=== PATIENT | male | born 1980 | race Caucasian/White ===

== ENCOUNTER 2024-11-12 07:27 | Emergency (ER) | payer MEDICAID, SELFPAY ==
[2024-11-12 08:37] VITALS: BP 117/73; PULSE 104; RESP 18; TEMP 36.8; O2SAT 95; BMI 30.4
--- NOTE | 2024-11-12 09:46 | XR_ITS ---
Examination: PA lateral chest 2 views Technique: Upright PA lateral chest 2 views Exam date and time: November 12, 2024 0958 hrs. Indications: Congestion beginning 2 weeks ago. Findings: Normal heart size Early bilateral perihilar basilar infiltrates with prominent hilar regions The osseous structures are intact Impression: Early bilateral perihilar bibasilar pneumonia. Follow-up chest imaging is needed to exclude underlying hilar lymphadenopathy
--- NOTE | 2024-11-12 09:48 | PD.EDURI ---
Upper Respiratory Inf. RME/HPI General Chief Complaint: Flu Like Symptoms Stated Complaint: COUGH, CONGESTION, SOB X A WEEK OR TWO Time Seen by Provider: 11/12/24 09:46 Arrival date/time: 11/12/24 07:27 RME / HPI RME / HPI Narrative: 44-year-old patient presents emergency department with complaint shortness of breath and cough for the past 2 weeks. Patient also states that he is lost his voice due to excessive coughing. He attest to tobacco use. He denies sick contacts or recent travel. He denies any alleviating or aggravating factors. Related Data Home Medications ?Medication ?Instructions ?Recorded ?Confirmed phenytoin sodium extended 100 mg 100 mg PO TID 04/14/19 04/11/24 capsule (Dilantin Extended) risperidone 2 mg tablet (Risperdal) 2 mg PO QDAY 04/14/19 04/11/24 Previous Rx's ?Medication ?Instructions ?Recorded cyclobenzaprine 10 mg tablet 10 mg PO TID PRN muscle spasm #10 09/14/24 tabs ibuprofen 600 mg tablet 600 mg PO Q8H PRN pain #20 tabs 09/14/24 azithromycin 250 mg tablet See Rx Instructions PO .COMPLEX #6 11/12/24 tabs Allergies Allergy/AdvReac Type Severity Reaction Status Date / Time codeine Allergy Severe VOMITING Verified 11/12/24 07:29 Review of Systems Review of Systems Systems Reviewed: All systems reviewed, normal except as documented Constitutional Constitutional: Reports system reviewed and no additional complaints, except as documented Cardiovascular Cardiovascular: Reports system reviewed and no additional complaints, except as documented Respiratory Respiratory: Reports system reviewed and no additional complaints, except as documented and Reports cough Gastrointestinal Gastrointestinal: Reports system reviewed and no additional complaints, except as documented Musculoskeletal Musculoskeletal: Reports system reviewed and no additional complaints, except as documented Psychiatric Psychiatric: Reports system reviewed and no additional complaints, except as documented ED Exam General General appearance: Present alert and in no apparent distress Head Head exam: Present atraumatic and normocephalic ENT ENT exam: Present normal exam and normal oropharynx Neck Neck exam: Present normal inspection and full ROM Chest Chest inspection: Present normal inspection and symmetric chest wall rise Respiratory Respiratory exam: Absent respiratory distress Cardiovascular Cardiovascular exam: Present regular rate and normal rhythm Extremities Exam Extremities exam: Present normal inspection and full ROM Neurological Exam Neurological exam: Present alert and oriented X3 Psychiatric Psychiatric exam: Present normal affect and normal mood Course Quality Measures none Orders Category Date Time Status XR chest 2V Stat Exams 11/12/24 09:46 Completed cefTRIAXone [Rocephin] 1,000 mg Med 11/12/24 12:14 Discontinued Lidocaine 1% 20 ml [Xylocaine 1% 20 ML] 2.1 ml IM X1 Vital Signs Vital signs: Vital Signs Temperature 98.2 F 11/12/24 08:37 Pulse Rate 104 H 11/12/24 08:37 Respiratory Rate 18 11/12/24 08:37 Blood Pressure 117/73 11/12/24 08:37 Pulse Oximetry (%) 95 11/12/24 08:37 Oxygen Delivery Method Room Air 11/12/24 08:37 Upper Respiratory Infection MDM Narrative MDM Narrative:: 44-year-old male patient presents emergency department with complaint of cough chest x-ray indicates pneumonia patient will be treated with IM antibiotics and DC'd home with oral antibiotics patient remained afebrile nontoxic-appearing throughout ED stay. Patient data External records reviewed:: None Clinical information provided by:: patient Social determinants that could affect healthcare access:: none Patient has the following chronic illnesses:: na How is presenting disease/condition affected by chronic disease/condition?: no chronic disease Evaluation data The following diagnostics were reviewed and interpreted by me:: radiology exam(s) Lab and/or radiology exams considered but not ordered:: CXR ordered Interpretation Summary: PNA Medications / Prescriptions Medications or Prescriptions considered but not ordered:: meds ordered Medication administrations:: Medication Administration History Discontinued Medications Ceftriaxone Sodium 1,000 mg/ (Lidocaine HCl 2.1 ml) 0 mg IM X1 ONE Stop: 11/12/24 12:15 per above Consultations Consultation(s) initiated? (list below): No Diagnosis Upper Respiratory Differential Diagnosis: upper respiratory infection, sinusitis, bronchitis and pharyngitis Most likely diagnosis given after review of the tests above:: PNA Admission Indicated Admission indicated?: not indicated Admission Request Was there a request for admission?: No Disposition Plan Disposition Plan: Discharge Discharge Attestation Discharge Attestation: The patient and all family members were given an opportunity to ask questions and understood the discharge instructions. Discharge instructions specifically effects, indications for sooner follow up or return to the emergency department, and the expected course of current diagnosis. Patient condition: Stable Discharge Plan Plan Patient Disposition: Elopement Prescriptions/Referrals Prescriptions/Med Rec: New azithromycin 250 mg tablet See Rx Instructions .ROUTE .COMPLEX Qty: 6 0RF Rx Instructions: For 250 mg dose pack: take 500 mg today (day 1), then 250 mg for 4 days (days 2-5) No Action phenytoin sodium extended [Dilantin Extended] 100 mg Capsule 100 mg PO TID risperidone [Risperdal] 2 mg Tablet 2 mg PO QDAY cyclobenzaprine 10 mg tablet 10 mg PO TID PRN (Reason: muscle spasm) Qty: 10 0RF ibuprofen 600 mg tablet 600 mg PO Q8H PRN (Reason: pain) Qty: 20 0RF Referrals: Silvia Finch, [employer] [Primary Care Provider] - In 1 week Problem List Clinical Impression: Community acquired pneumonia Patient/Caregiver Discharge Instructions Education Materials: ED Pneumonia (Adult) Print Language: Yakut Stand Alone Forms: Claudette Award Info., Patient Portal Info Letter
--- NOTE | 2024-11-12 12:21 | PC.NURSE ---
called pt back, no answer at this time
--- NOTE | 2024-11-12 13:24 | PC.NURSE ---
called back and no answer in the lobby
== END 2024-11-12 13:20 | disposition left against medical advice (07) ==
PROVIDERS: Emergency Provider Emergency Medicine; PCP Nurse Practitioner Family
DX: J18.9 Pneumonia, unspecified organism (principal); Z53.29 Procedure and treatment not carried out because of patient's decision for other reasons
CPT/HCPCS: 71046; 99281

== ENCOUNTER 2025-03-09 06:21 | Emergency (ER) | payer MEDICAID, SELFPAY ==
[2025-03-09 06:21] VITALS: BMI 30.4
[2025-03-09 06:26] VITALS: BP 134/90; PULSE 92; RESP 19; TEMP 36.4; O2SAT 95
--- NOTE | 2025-03-09 06:37 | PD.EDRME ---
Rapid Medical Screening Exam [facility] Arrival date/time: 03/09/25 06:21 44-year-old male with no known medical history presents to the emergency room with a chief complaint of abdominal distention, generalized abdominal pain, and nausea x 3 days. Patient states she is a daily alcoholic drinker. I have greeted and performed a focused initial assessment of this patient. A comprehensive ED assessment and evaluation of the patient, analysis of all test results, and completion of the medical decision making process will be conducted by additional ED providers. Chief Complaint: Abdominal Pain Time Seen by Provider: 03/09/25 06:25 Vital signs: Vital Signs Temperature 97.6 F 03/09/25 06:26 Pulse Rate 92 03/09/25 06:26 Respiratory Rate 19 03/09/25 06:26 Blood Pressure 134/90 H 03/09/25 06:26 Pulse Oximetry (%) 95 03/09/25 06:26 Oxygen Delivery Method Room Air 03/09/25 06:26 Vital signs reviewed by provider: Yes
--- NOTE | 2025-03-09 06:39 | XR_ITS ---
Examination: CT abdomen and pelvis without contrast. Coronal 3-D reconstructions. Sagittal 2-D reconstructions. Date and time of exam: March 09, 2025 0823 hours INDICATIONS: Onset mid abdominal pain lower abdominal pain today, diagnosis cirrhosis COMPARISON: February 16, 2024, CTDI: vol (mGy): 8.75 DLP: (mGycm): 568 Technique: Axial images of the abdomen have been obtained, 3 mm slice thickness Intravenous contrast material has not been administered. Low dose protocols were performed. One or more of the following dose reduction techniques were used; automated exposure control, adjustment of the mA and/or KV according to patient size, use of iterative reconstruction technique. Findings: Liver irregular in contour no focal liver lesions No gallstones Spleen not enlarged No pancreatic or adrenal mass No renal or ureteral calculi, no hydronephrosis Aorta normal size Normal appendix No bowel obstruction No diverticulitis Urinary bladder intact No prostatomegaly Advanced degenerative disc disease L5-S1 IMPRESSION: Cirrhosis versus primary hepatocellular disease No renal or ureteral calculi, no hydronephrosis Normal appendix No bowel obstruction diverticulitis or free air
--- NOTE | 2025-03-09 07:20 | PD.EDABDPN ---
ED Abdominal Pain RME/HPI General Chief Complaint: Abdominal Pain Stated complaint: ABD PAIN, DISTENDED, NAUSEA Time seen by provider: 03/09/25 06:25 Arrival date/time: 03/09/25 06:21 Limitations: no limitations RME / HPI RME / HPI narrative: 03/09/25 06:21 44-year-old male with no known medical history presents to the emergency room with a chief complaint of abdominal distention, generalized abdominal pain, and nausea x 3 days. Patient states she is a daily alcoholic drinker. I have greeted and performed a focused initial assessment of this patient. A comprehensive ED assessment and evaluation of the patient, analysis of all test results, and completion of the medical decision making process will be conducted by additional ED providers. DR. SAMUELS MAIN ED EVALUATION: 44 year old male with no stated chronic medical history presents to the ED for evaluation of abdominal pain beginning 3 days ago. Patient describes his abdomen to feel it's inflated without known modifying factors. Accompanied by nausea. Denies any history of similar symptoms. Denies fevers, chills, chest pain, cough, diarrhea, constipation, or urinary symptoms. Patient reports he drinks alcohol daily. Related Data Home Medications ?Medication ?Instructions ?Recorded ?Confirmed phenytoin sodium extended 100 mg 100 mg PO TID 04/14/19 04/11/24 capsule (Dilantin Extended) risperidone 2 mg tablet (Risperdal) 2 mg PO QDAY 04/14/19 04/11/24 Previous Rx's ?Medication ?Instructions ?Recorded cyclobenzaprine 10 mg tablet 10 mg PO TID PRN muscle spasm #10 09/14/24 tabs ibuprofen 600 mg tablet 600 mg PO Q8H PRN pain #20 tabs 09/14/24 azithromycin 250 mg tablet See Rx Instructions PO .COMPLEX #6 11/12/24 tabs Allergies Allergy/AdvReac Type Severity Reaction Status Date / Time codeine Allergy Severe VOMITING Verified 11/12/24 07:29 Review of Systems Review of Systems Systems Reviewed: All systems reviewed, normal except as documented Past Medical History Past Medical History NEUROLOGIC: Positive Seizures CARDIAC: Negative Congestive Heart Failure RESPIRATORY: Negative Chronic Obstructive Pulmonary Disease (COPD) GASTROINTESTINAL: Positive Cirrhosis GENITOURINARY: Negative Renal Disease ENDOCRINE: Negative Diabetes Mellitus Type 1 or Diabetes Mellitus Type 2 PSYCHO/SOCIAL: Positive Bipolar Disorder and Depression Social History SMOKING STATUS: Current every day smoker SUBSTANCE USE: does not use ED Exam General Limitations: Present no limitations General appearance: Present alert and in no apparent distress Head Head exam: Present atraumatic, normocephalic and normal inspection Eye Eye exam: Present normal appearance, PERRL and EOMI ENT ENT exam: Present normal exam, normal oropharynx and mucous membranes moist Neck Neck exam: Present normal inspection, full ROM and trachea midline Chest Chest inspection: Present normal inspection and symmetric chest wall rise Respiratory Respiratory exam: Present normal lung sounds bilaterally Cardiovascular Cardiovascular exam: Present regular rate, normal rhythm and normal heart sounds Abdominal Exam Abdominal exam: Present soft, distention, normal bowel sounds and other (small umbilical hernia noted ) Extremities Exam Extremities exam: Present normal inspection and full ROM Back Exam Back exam: Present normal inspection and full ROM Neurological Exam Neurological exam: Present alert, oriented X3 and CN II-XII intact Psychiatric Psychiatric exam: Present normal affect and normal mood Skin Skin exam: Present warm, dry, intact and normal color Course Quality Measures none Orders Category Date Time Status Discharge Routine Discharge 03/09/25 09:[address] abdomen pelvis wo con Stat Exams 03/09/25 06:39 Completed Amylase Stat Lab 03/09/25 06:58 Completed CBC Stat Lab 03/09/25 06:58 Completed CMP [Comprehensive Metabolic Panel] Stat Lab 03/09/25 06:58 Completed Lipase Stat Lab 03/09/25 06:58 Completed UA [Urinalysis] Stat Lab 03/09/25 07:31 Completed Urine Culture Stat Lab 03/09/25 07:33 Received Reevaluation(s) Reevaluation #1: Patient remains clinically stable throughout the emergency department visit. We reviewed all the results, analysis, and treatment plans. Patient is amenable to discharge. Strict return precautions were outlined. Patient was discharged in stable condition. Time: 09:10 Vital Signs Vital signs: Vital Signs Temperature 97.6 F 03/09/25 06:26 Pulse Rate 92 03/09/25 06:26 Respiratory Rate 19 03/09/25 06:26 Blood Pressure 134/90 H 03/09/25 06:26 Pulse Oximetry (%) 95 03/09/25 06:26 Oxygen Delivery Method Room Air 03/09/25 06:26 Pulse ox is 95% on room air which is adequate. Abdominal Pain MDM MDM Narrative MDM Narrative:: I, Cecile Joseph, am scribing for and in the presence of Dr. Samuels. I have reviewed the patient?s laboratory results, which demonstrate a persistent leukocytosis, dating back to 2021. I discussed the importance of further evaluation with the patient. I advised him to follow up with his primary care provider to get a referral to hematology/oncology for additional workup and management. Patient data External records reviewed:: [facility] previous records (I reviewed ED visit on 11/12/2024, diagnosed with pneumonia ) Clinical information provided by:: patient Social determinants that could affect healthcare access:: alcohol use Patient has the following chronic illnesses:: No chronic medical history reported How is presenting disease/condition affected by chronic disease/condition?: no chronic disease Evaluation data The following diagnostics were reviewed and interpreted by me:: lab results and radiology exam(s) Lab and/or radiology exams considered but not ordered:: None Interpretation Summary: Ordering Physician: Osorio Coffman Date of Service: 03/09/25 Procedure(s): CT abdomen pelvis wo con Accession Number(s): [id number] cc: Osorio Coffman; Cheng Garcia MD; Silvia Finch NP~ Examination: CT abdomen and pelvis without contrast. Coronal 3-D reconstructions. Sagittal 2-D reconstructions. Date and time of exam: March 09, 2025 0823 hours INDICATIONS: Onset mid abdominal pain lower abdominal pain today, diagnosis cirrhosis COMPARISON: February 16, 2024, CTDI: vol (mGy): 8.75 DLP: (mGycm): 568 Technique: Axial images of the abdomen have been obtained, 3 mm slice thickness Intravenous contrast material has not been administered. Low dose protocols were performed. One or more of the following dose reduction techniques were used; automated exposure control, adjustment of the mA and/or KV according to patient size, use of iterative reconstruction technique. Findings: Liver irregular in contour no focal liver lesions No gallstones Spleen not enlarged No pancreatic or adrenal mass No renal or ureteral calculi, no hydronephrosis Aorta normal size Normal appendix No bowel obstruction No diverticulitis Urinary bladder intact No prostatomegaly Advanced degenerative disc disease L5-S1 IMPRESSION: Cirrhosis versus primary hepatocellular disease No renal or ureteral calculi, no hydronephrosis Normal appendix No bowel obstruction diverticulitis or free air Dictated By: Cheng Garcia MD Signed By: <Electronically signed by Cheng Garcia MD in OV> 03/09/25 0854 Medications / Prescriptions Medications or Prescriptions considered but not ordered:: None Medication administrations:: None Consultations Consultation(s) initiated? (list below): No Diagnosis Differential diagnosis abdominal pain: abdominal pain, constipation, diverticulitis and other (liver disease) Most likely diagnosis given after review of the tests above:: Liver disease Leukocytosis Admission Indicated Admission indicated?: not indicated Explain why admission is indicated or not indicated:: Patient does not meet admission criteria Admission Request Was there a request for admission?: No Disposition Plan Disposition Plan: Discharge Discharge Attestation Discharge Attestation: The patient and all family members were given an opportunity to ask questions and understood the discharge instructions. Discharge instructions specifically effects, indications for sooner follow up or return to the emergency department, and the expected course of current diagnosis. Patient condition: Stable Discharge Plan Plan Patient Disposition: HOME (Self Care) Prescriptions/Referrals Prescriptions/Med Rec: No Action phenytoin sodium extended [Dilantin Extended] 100 mg Capsule 100 mg PO TID risperidone [Risperdal] 2 mg Tablet 2 mg PO QDAY azithromycin 250 mg tablet See Rx Instructions .ROUTE .COMPLEX Qty: 6 0RF Rx Instructions: For 250 mg dose pack: take 500 mg today (day 1), then 250 mg for 4 days (days 2-5) cyclobenzaprine 10 mg tablet 10 mg PO TID PRN (Reason: muscle spasm) Qty: 10 0RF ibuprofen 600 mg tablet 600 mg PO Q8H PRN (Reason: pain) Qty: 20 0RF Referrals: Silvia Finch NP [Primary Care Provider] - In 1 week Problem List Clinical Impression: Liver disease, Leukocytosis Patient/Caregiver Discharge Instructions Education Materials: Tests for Liver Disease Additional Instructions: Follow up with your doctor for referral to hematology/oncology and head banquet waiter/waitress for further evaluation/treatment. Return for any new or worsening symptoms. Print Language: Kittitian Stand Alone Forms: Claudette Award Info., Patient Portal Info Letter Discharge Order Discharge Orders: Discharge (Routine); Ordered 03/09/25 Ordered By: Alex Samuels
[2025-03-09 07:22] LABS: Basophils # (Auto) 0.1 Thou/mm3 (0.0-0.2); Basophils % (Auto) 0 % (0-2.5); Eosinophils # (Auto) 0.3 Thou/mm3 (0.0-0.5); Eosinophils % (Auto) 1 % (0-10); Hematocrit 44.6 % (41.0-53.0); Hemoglobin 15.3 g/dL (13.5-16.0); Immature Granulocytes % (Auto) 0 % (0-0); Immature Granulocytes Auto 0.07 Thou/mm3 (0.00-0.00); Lymphocytes # (Auto) 16.5 Thou/mm3 (1.0-4.8); Lymphocytes % (Auto) 70 % (10-50); Mean Corpuscular HGB Conc 34.3 g/dl (31.0-37.0); Mean Corpuscular Hemoglobin 32.3 pg (25.0-35.0); Mean Corpuscular Volume 94 fL (80-100); Monocytes # (Auto) 0.4 Thou/mm3 (0.0-0.8); Monocytes % (Auto) 2 % (0-12); Neutrophils # (Auto) 6.4 Thou/mm3 (1.8-7.7); Neutrophils % (Auto) 27 % (37-80); Nucleated Red Blood Cell % 0 /100 WBC (0); Platelet Count 258 Thou/mm3 (140-440); RDW Standard Deviation 47.4 fL (35.1-43.9); Red Blood Count 4.74 Miln/mm3 (4.50-5.90); White Blood Count 23.7 Thou/mm3 (3.8-10.6)
[2025-03-09 07:41] LABS: Alanine Aminotransferase 43 U/L (10-49); Albumin, Serum 4.8 gm/dL (3.5-5.0); Albumin/Globulin Ratio 2.2 (1.2-2.2); Alkaline Phosphatase 98 U/L (46-116); Amylase 48 U/L (30-118); Anion Gap 7 (7-16); Aspartate Amino Transferase 32 U/L (0-34); BUN/Creatinine Ratio 7 Ratio (12-20); Bilirubin,Total 0.7 mg/dL (0.3-1.2); Blood Urea Nitrogen 9 mg/dL (9-23); Calcium 9.3 mg/dL (8.3-10.6); Calcium (Corrected) 9.3 mg/dL (8.5-10.1); Carbon Dioxide 24.4 mMol/L (20.0-31.0); Chloride 106 mMol/L (98-107); Creatinine (Component) 1.3 mg/dL (0.6-1.3); Estimated Creatinine Clearance 77.7 mL/min (>60); Globulin 2.2 gm/dL (2.3-3.5); Glucose 99 mg/dL (74-106); Lipase 46 U/L (12-53); Osmolality,Calculated 272 (275-295); Potassium 3.6 mMol/L (3.4-5.1); Sodium 137 mMol/L (136-145); eGFR > 60 See Note
[2025-03-09 07:42] LABS: Collection Type, Urine Clean Catch; Squamous Epithelial Cell,Urine 0 /hpf (0-5)
[2025-03-09 07:56] LABS: Bacteria,Urine Rare; Bilirubin,Urine Negative (Negative); Blood,Urine Negative (Negative); Clarity,Urine Clear (Clear/Hazy); Color,Urine Yellow (Lt Yel-Yel); Glucose, Urine Negative (Negative); Hyaline Casts,Urine < 1 /hpf (0-1); Ketones,Urine Negative (Negative); Leukocyte Esterase,Urine Negative (Negative); Nitrite,Urine Negative (Negative); Protein,Urine Trace (Neg - Trace); RBC,Urine 2 /hpf (0-3); Specific Gravity,Urine 1.019 (1.001-1.035); Urobilinogen,Urine Negative mg/dL (0.0-1.0); WBC,Urine < 1 /hpf (0-5)
[2025-03-09 08:09] VITALS: BP 132/86; PULSE 89; RESP 18; TEMP 36.6; O2SAT 92
[2025-03-09 08:20] LABS: Sperm,Urine Present
[2025-03-09 10:08] VITALS: BP 123/80; PULSE 91; RESP 18; TEMP 36.6; O2SAT 98
== END 2025-03-09 10:09 | disposition home or self-care (01) ==
PROVIDERS: Nurse Practitioner Family; Emergency Provider Emergency Medicine; PCP Nurse Practitioner Family
DX: K76.9 Liver disease, unspecified (principal); D72.829 Elevated white blood cell count, unspecified
CPT/HCPCS: 36415; 74176; 80053; 81001; 82150; 83690; 85025; 87086; 99284

== ENCOUNTER 2025-03-12 17:04 | Emergency (ER) | payer MEDICAID, SELFPAY ==
[2025-03-12 17:09] VITALS: BP 145/91; PULSE 86; RESP 18; TEMP 37.2; O2SAT 97; BMI 32.5
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
--- NOTE | 2025-03-12 17:22 | XR_ITS ---
EXAMINATION: Ankle, right 3 views . Technique: Ankle AP, oblique, lateral 3 views Date and time of exam: March 12, 2025 at 1931 hours INDICATIONS: Injured ankle today, ankle pain. FINDINGS: No fracture or dislocation. No foreign body IMPRESSION: No fracture or dislocation
--- NOTE | 2025-03-12 17:22 | PD.EDLOWEX ---
Lower Extremity Injury RME/HPI General Chief Complaint: Extremity Injury, Lower Stated Complaint: RIGHT ANKLE PAIN SECONDARY TO KICKING AN OBJECT Time Seen by Provider: 03/12/25 17:06 Arrival date/time: 03/12/25 17:04 RME / HPI RME / HPI Narrative: 44-year-old patient presents emergency department with complaint of right ankle pain status post kicking an object during her shift her to come to the emergency department. Pain is worse with ambulation. Pain is also worse with palpation of the affected area. He denies numbness and tingling to distal toes. He rates his pain currently as an 8 out of 10. Patient states he is unable to bear weight on his right foot/ankle. Related Data Home Medications ?Medication ?Instructions ?Recorded ?Confirmed phenytoin sodium extended 100 mg 100 mg PO TID 04/14/19 04/11/24 capsule (Dilantin Extended) risperidone 2 mg tablet (Risperdal) 2 mg PO QDAY 04/14/19 04/11/24 Previous Rx's ?Medication ?Instructions ?Recorded cyclobenzaprine 10 mg tablet 10 mg PO TID PRN muscle spasm #10 09/14/24 tabs ibuprofen 600 mg tablet 600 mg PO Q8H PRN pain #20 tabs 09/14/24 azithromycin 250 mg tablet See Rx Instructions PO .COMPLEX #6 11/12/24 tabs Allergies Allergy/AdvReac Type Severity Reaction Status Date / Time codeine Allergy Severe VOMITING Verified 03/12/25 17:07 Review of Systems Review of Systems Systems Reviewed: All systems reviewed, normal except as documented Constitutional Constitutional: Reports system reviewed and no additional complaints, except as documented Cardiovascular Cardiovascular: Reports system reviewed and no additional complaints, except as documented Respiratory Respiratory: Reports system reviewed and no additional complaints, except as documented Musculoskeletal Musculoskeletal: Reports system reviewed and no additional complaints, except as documented, Reports abnormal gait, Reports arthralgias, Denies atrophy, Denies back pain, Denies deformity, Denies joint swelling, Reports limited range of motion, Denies muscle weakness and Denies radiating pain into limb Neurologic Neurologic: Reports abnormal gait ED Exam General General appearance: Present alert and in no apparent distress ENT ENT exam: Present normal exam Neck Neck exam: Present normal inspection Chest Chest inspection: Present normal inspection Respiratory Respiratory exam: Present normal lung sounds bilaterally Cardiovascular Cardiovascular exam: Present regular rate Expanded Lower Extremity Exam Ankle exam: Present tenderness; Absent full ROM or anterior draw sign Foot/toe exam: Present tenderness and swelling; Absent full ROM or tenderness at base of 5th metatarsal Neurological Exam Neurological exam: Present alert and oriented X3 Course Quality Measures none Orders Category Date Time Status Crutches .NOW Care 03/12/25 17:20 Active jag wrap [Splint / Immobilizer] STAT Care 03/12/25 17:20 Active XR ankle comp RT min 3V Stat Exams 03/12/25 17:22 Completed XR foot comp RT min 3V Stat Exams 03/12/25 17:20 Completed Ibuprofen Tab [Motrin Tab] Med 03/12/25 17:20 Discontinued 800 mg PO X1 ONE Vital Signs Vital signs: Vital Signs Temperature 98.9 F 03/12/25 17:09 Pulse Rate 86 03/12/25 17:09 Respiratory Rate 18 03/12/25 17:09 Blood Pressure 145/91 H 03/12/25 17:09 Pulse Oximetry (%) 97 03/12/25 17:09 Oxygen Delivery Method Room Air 03/12/25 17:09 Extremity Injury, Lower MDM Narrative MDM Narrative:: 44-year-old male patient presents emergency department with complaint of right ankle and foot pain status post kicking a large lateral hand. Current emergency department. Patient states he is unable to bear weight to his right foot/ankle. Patient denies numbness and tingling to distal right foot. Patient placed in Jag wrap and given crutches for ambulation x-rays was negative for fractures. Patient data External records reviewed:: None Clinical information provided by:: patient Social determinants that could affect healthcare access:: none Patient has the following chronic illnesses:: na How is presenting disease/condition affected by chronic disease/condition?: uneffected by Evaluation data The following diagnostics were reviewed and interpreted by me:: radiology exam(s) Lab and/or radiology exams considered but not ordered:: radiology considered and ordered Interpretation Summary: no fractures Medications / Prescriptions Medications or Prescriptions considered but not ordered:: considered and ordered Medication administrations:: Medication Administration History Discontinued Medications Ibuprofen (Ibuprofen Tab 400 Mg Tablet) 800 mg PO X1 ONE Stop: 03/12/25 17:21 Last Admin: 03/12/25 17:41 Dose: 800 mg Documented By: KF given in ED Consultations Consultation(s) initiated? (list below): No Diagnosis Extremity Injury, Lower Differential Diagnosis: ankle sprain and strain, ankle fracture and other (foot sprain/ fracture) Most likely diagnosis given after review of the tests above:: sprain/ strain/ Admission Indicated Admission indicated?: not indicated Admission Request Was there a request for admission?: No Disposition Plan Disposition Plan: Discharge Discharge Attestation Discharge Attestation: The patient and all family members were given an opportunity to ask questions and understood the discharge instructions. Discharge instructions specifically effects, indications for sooner follow up or return to the emergency department, and the expected course of current diagnosis. Patient condition: Stable Discharge Plan Plan Patient Disposition: HOME (Self Care) Prescriptions/Referrals Prescriptions/Med Rec: No Action phenytoin sodium extended [Dilantin Extended] 100 mg Capsule 100 mg PO TID risperidone [Risperdal] 2 mg Tablet 2 mg PO QDAY azithromycin 250 mg tablet See Rx Instructions .ROUTE .COMPLEX Qty: 6 0RF Rx Instructions: For 250 mg dose pack: take 500 mg today (day 1), then 250 mg for 4 days (days 2-5) cyclobenzaprine 10 mg tablet 10 mg PO TID PRN (Reason: muscle spasm) Qty: 10 0RF ibuprofen 600 mg tablet 600 mg PO Q8H PRN (Reason: pain) Qty: 20 0RF Problem List Clinical Impression: Ankle sprain and strain, Right foot sprain, Right ankle sprain Patient/Caregiver Discharge Instructions Education Materials: Treating?Strains and Sprains, Understanding Ankle Sprain, ED JAG Wrap, ED Foot Sprain Print Language: Dutch Stand Alone Forms: Claudette Award Info., Patient Portal Info Letter
[2025-03-12] MEDS: IBUPROFEN TAB 400 MG TABLET 800 MG PO (17:41)
== END 2025-03-12 18:52 | disposition home or self-care (01) ==
PROVIDERS: Emergency Provider Emergency Medicine; PCP Nurse Practitioner Family
DX: S93.401A Sprain of unspecified ligament of right ankle, initial encounter (principal); S93.601A Unspecified sprain of right foot, initial encounter; W22.8XXA Striking against or struck by other objects, initial encounter
CPT/HCPCS: 73610; 73630; 99283; A9270

== ENCOUNTER 2025-04-10 12:44 | Emergency (ER) | payer MEDICAID, SELFPAY ==
[2025-04-10 13:00] VITALS: BP 133/83; PULSE 99; RESP 18; TEMP 36.7; O2SAT 96; BMI 30.9
--- NOTE | 2025-04-10 13:04 | EDNOTE_ITS ---
ED Alcohol RME/HPI General Chief Complaint: Anxiety Stated Complaint: I FEEL AWFUL ; DRINKS EVERYDAY, HAVEN'T EATEN Time Seen by Provider: 04/10/25 13:04 Source: patient Arrival date/time: 04/10/25 12:44 Mode of arrival: ambulatory Limitations: no limitations RME / HPI RME / HPI narrative: 44-year-old male presents to the ED with a complaint of consuming 8-9 beers a day for greater than a month. Patient tells me he is not feeling very well, stating that headache, malaise, body aches. MD complaint: alcohol intoxication Chronic alcohol use: Yes Previous visits for alcohol intoxication: Yes Recent trauma: No Treatments prior to arrival: none Related Data Home Medications ?Medication ?Instructions ?Recorded ?Confirmed phenytoin sodium extended 100 mg 100 mg PO TID 9 04/11/24 capsule (Dilantin Extended) risperidone 2 mg tablet (Risperdal) 2 mg PO QDAY 04/1404/11/24 Previous Rx's ?Medication ?Instructions ?Recorded cyclobenzaprine 10 mg tablet 10 mg PO TID PRN muscle s pasm #10 09/14/24 tabs ibuprofen 600 mg tablet 600 mg PO Q8H PRN pain #20 t abs 09/14/24 azithromycin 250 mg tablet See Rx Instructions PO .COM PLEX #6 11/12/24 tabs Allergies Allergy/AdvReac Type Severity Reaction Status Date / Time codeine Allergy Severe VOMITING Verified 04/10/25 12:47 Review of Systems Constitutional Constitutional: Reports system reviewed and no additional complaints, except as documented Eyes Eyes: Reports system reviewed and no additional complaints, except as documented, Denies dry eyes, Denies exophthalmos and Reports floaters Cardiovascular Cardiovascular: Denies chest pain with activity and Denies claudication ED Exam General Limitations: Present no limitations General appearance: Present alert and in no apparent distress Head Head exam: Present atraumatic Eye Eye exam: Present normal appearance, PERRL and EOMI ENT ENT exam: Present normal exam, normal oropharynx and mucous membranes moist Neck Neck exam: Present normal inspection, full ROM and trachea midline Chest Chest inspection: Present normal inspection and symmetric chest wall rise Respiratory Respiratory exam: Present normal lung sounds bilaterally Cardiovascular Cardiovascular exam: Present regular rate, normal rhythm and normal heart sounds Abdominal Exam Abdominal exam: Present soft and normal bowel sounds Extremities Exam Extremities exam: Present normal inspection and full ROM Back Exam Back exam: Present normal inspection and full ROM Neurological Exam Neurological exam: Present alert and oriented X3 Psychiatric Psychiatric exam: Present normal affect and normal mood Skin Skin exam: Present warm, dry, intact and normal color Course Course Course Narrative: Patient had a liter normal saline, 1 mg Ativan CBC, CMP, EtOH level Quality Measures none Orders Category Date Time Status CT Screening NOW Care 04/10/25 15:[address] abdomen pelvis w con Stat Exams 04/10/25 15:18 Completed CXR2 [XR chest 2V] Stat Exams 04/10/25 15:18 Completed Alcohol, Blood Medical Stat Lab 04/10/25 13:37 Completed CBC Stat Lab 04/10/25 13:37 Completed CMP [Comprehensive Metabolic Panel] Stat Lab 04/10/25 13:37 Completed Lipase Stat Lab 04/10/25 13:37 Completed LORazepam [Ativan] Med 04/10/25 13:15 Discontinued 1 mg PO X1 ONE Sodium Chloride 0.9% 1000 ml [Ns] 1,000 ml Med 04/10/25 13:15 Active IV 80 mls/hr Vital Signs Vital signs: Vital Signs Temperature 98.0 F 04/10/25 13:00 Pulse Rate 99 04/10/25 13:00 Respiratory Rate 18 04/10/25 13:00 Blood Pressure 133/83 H 04/10/25 13:00 Pulse Oximetry (%) 96 04/10/25 13:00 Oxygen Delivery Method Room Air 04/10/25 13:00 Pulse ox is 96% room air Discharge Plan Plan Patient Disposition: HOME (Self Care) Discharge Disposition comment: Discharge no apparent distress Patient condition on transfer: Stable Prescriptions/Referrals Prescriptions/Med Rec: No Action phenytoin sodium extended [Dilantin Extended] 100 mg Capsule 100 mg PO TID risperidone [Risperdal] 2 mg Tablet 2 mg PO QDAY azithromycin 250 mg tablet See Rx Instructions .ROUTE .COMPLEX Qty: 6 0RF Rx Instructions: For 250 mg dose pack: take 500 mg today (day 1), then 250 mg for 4 days (days 2-5) cyclobenzaprine 10 mg tablet 10 mg PO TID PRN (Reason: muscle spasm) Qty: 10 0RF ibuprofen 600 mg tablet 600 mg PO Q8H PRN (Reason: pain) Qty: 20 0RF Problem List Clinical Impression: History of leukocytosis Patient/Caregiver Discharge Instructions Print Language: Niuean Stand Alone Forms: Claudette Award Info., Patient Portal Info Letter MATHIEU/BAM Supervising Physician JOSE JUAN Supervising Physician: Yennifer Acosta MDM Narrative MDM Narrative: Patient has had a leukocytosis that dates back to 2017. The leukocytosis continues to increase and he is awaiting a employer relations representative consult. Patient will be discharged in no apparent distress as he wishes to go home. Patient data External records reviewed:: Other (specify) Clinical information provided by:: none Social determinants that could affect healthcare access:: none Patient has the following chronic illnesses:: Leukocytosis How is presenting disease/condition affected by chronic disease/condition?: caused by (Alcoholism) Evaluation data The following diagnostics were reviewed and interpreted by me:: lab results Lab and/or radiology exams considered but not ordered:: NA Interpretation Summary: NA Medications / Prescriptions Medications or Prescriptions considered but not ordered:: NA Medication administrations:: Medication Administration History Sodium Chloride (Ns) 1,000 mls @ 80 mls/hr IV .[id number] ONE Stop: 04/11/25 01:44 Last Admin: 04/10/25 15:00 Dose: 80 mls/hr Documented By: RAPHAEL Discontinued Medications Lorazepam (Lorazepam 0.5 Mg Tablet) 1 mg PO X1 ONE Stop: 04/10/25 13:16 Last Admin: 04/10/25 15:00 Dose: 1 mg Documented By: RAPHAEL NA Consultations Consultation(s) initiated? (list below): No Diagnosis Most likely diagnosis given after review of the tests above:: Leukocytosis Admission Indicated Admission indicated?: not indicated Admission Request Was there a request for admission?: No Disposition Plan Disposition Plan: Discharge Discharge Attestation Discharge Attestation: The patient and all family members were given an opportunity to ask questions and understood the discharge instructions. Discharge instructions specifically effects, indications for sooner follow up or return to the emergency department, and the expected course of current diagnosis. Patient condition: Stable
[2025-04-10 13:46] LABS: Basophils # (Auto) 0.1 Thou/mm3 (0.0-0.2); Basophils % (Auto) 1 % (0-2.5); Eosinophils # (Auto) 0.1 Thou/mm3 (0.0-0.5); Eosinophils % (Auto) 0 % (0-10); Hematocrit 45.3 % (41.0-53.0); Hemoglobin 15.4 g/dL (13.5-16.0); Immature Granulocytes % (Auto) 0 % (0-0); Immature Granulocytes Auto 0.03 Thou/mm3 (0.00-0.00); Lymphocytes # (Auto) 24.9 Thou/mm3 (1.0-4.8); Lymphocytes % (Auto) 88 % (10-50); Mean Corpuscular Hemoglobin 32.2 pg (25.0-35.0); Mean Corpuscular Volume 95 fL (80-100); Monocytes # (Auto) 0.4 Thou/mm3 (0.0-0.8); Monocytes % (Auto) 1 % (0-12); Neutrophils # (Auto) 2.9 Thou/mm3 (1.8-7.7); Neutrophils % (Auto) 10 % (37-80); Nucleated Red Blood Cell % 0 /100 WBC (0); Platelet Count 234 Thou/mm3 (140-440); RDW Standard Deviation 50.6 fL (35.1-43.9); Red Blood Count 4.79 Miln/mm3 (4.50-5.90); White Blood Count 28.4 Thou/mm3 (3.8-10.6)
[2025-04-10 14:14] LABS: Alanine Aminotransferase 42 U/L (10-49); Albumin, Serum 4.6 gm/dL (3.5-5.0); Albumin/Globulin Ratio 2.1 (1.2-2.2); Alcohol, Blood Medical 291.2 mg/dL (0-10.0); Alkaline Phosphatase 101 U/L (46-116); Anion Gap 15 (7-16); Aspartate Amino Transferase 43 U/L (0-34); BUN/Creatinine Ratio 6 Ratio (12-20); Bilirubin,Total 0.5 mg/dL (0.3-1.2); Blood Urea Nitrogen 7 mg/dL (9-23); Calcium 8.2 mg/dL (8.3-10.6); Calcium (Corrected) 8.2 mg/dL (8.5-10.1); Carbon Dioxide 21.3 mMol/L (20.0-31.0); Chloride 103 mMol/L (98-107); Creatinine (Component) 1.2 mg/dL (0.6-1.3); Estimated Creatinine Clearance 84.7 mL/min (>60); Globulin 2.2 gm/dL (2.3-3.5); Glucose 156 mg/dL (74-106); Osmolality,Calculated 278 (275-295); Potassium 3.7 mMol/L (3.4-5.1); Sodium 139 mMol/L (136-145); Total Protein 6.8 gm/dL (5.7-8.2); eGFR > 60 See Note
[2025-04-10] MEDS: LORazepam 0.5 MG TABLET 1 MG PO (15:00)
[2025-04-10] MEDS: SODIUM CHLORIDE 0.9% 1000 ML 1,000 ML 80 ML IV (15:00)
--- NOTE | 2025-04-10 15:18 | XR_ITS ---
Examination: CT abdomen with intravenous contrast CT pelvis with intravenous contrast 2-D coronal reconstructions 2-D sagittal reconstructions Date and time of exam:April 10, 2025, 1720 hours Comparison March 09, 2025 INDICATIONS: Alcohol abuse history, leukocytosis 28,000 today abdominal pain. CTDI: vol (mGy) 8.1 DLP: (mGycm) 504 Technique: Multiple axial sections of the abdomen and pelvis have been obtained. 64 slice high-resolution scanner used. 3 mm axial sections have been obtained, post intravenous injection Isovue 370 60 cc 2-D sagittal, coronal reconstructions obtained. Low dose protocols were performed. One or more of the following dose reduction techniques were used; automated exposure control, adjustment of the mA and/or KV according to patient size, use of iterative reconstruction technique. Findings: Liver is irregular in contour with fatty infiltration No gallstones Spleen not enlarged No pancreatic or adrenal mass No renal or ureteral calculi, no hydronephrosis Normal appendix 14 mm fat-containing umbilical hernia No bowel obstruction No ascites Negative for diverticulitis Urinary bladder intact No prostatomegaly Advanced degenerative disc disease L5-S1 IMPRESSION: Cirrhosis Negative for ascites Normal appendix No bowel obstruction
--- NOTE | 2025-04-10 15:18 | XR_ITS ---
Examination: PA lateral chest 2 views TECHNIQUE: Upright PA lateral chest 2 views Date and time: April 10, 2025 1527 hours Comparison November 12, 2024 INDICATIONS: Weakness today FINDINGS: Normal heart size Lungs are clear. Osseous structures are intact with mild wedging of mid dorsal vertebral bodies IMPRESSION: No acute process
[2025-04-10 15:36] LABS: Lipase 53 U/L (12-53)
[2025-04-10 18:27] VITALS: BP 134/88; PULSE 89; RESP 18; O2SAT 99
[2025-04-10 22:04] LABS: Path Review Blood Smear Sent to Pathologist
== END 2025-04-10 18:32 | disposition home or self-care (01) ==
LOC: SERX 14:02
PROVIDERS: Physician Assistant; Emergency Provider Emergency Medicine; PCP Nurse Practitioner Family
DX: D72.829 Elevated white blood cell count, unspecified (principal); F41.9 Anxiety disorder, unspecified; F10.129 Alcohol abuse with intoxication, unspecified; Y90.9 Presence of alcohol in blood, level not specified
CPT/HCPCS: 36415; 71046; 74177; 80053; 80320; 83690; 85025; 99285; A4649; J7030; Q9967; A9270; G0480

== ENCOUNTER 2025-10-14 11:42 | Emergency (ER) | payer MEDICAID, SELFPAY ==
[2025-10-14 11:49] VITALS: BP 145/88; PULSE 85; RESP 19; TEMP 36.3; O2SAT 98; BMI 31.8
--- NOTE | 2025-10-14 11:59 | XR_ITS ---
Examination: Knee, left, 3 views Technique: Knee AP, lateral, oblique 3 views Date and time of exam: October 14, 2025, 1214 hours INDICATIONS: Injury to the knee yesterday, knee pain. FINDINGS: No fracture or dislocation. No foreign body IMPRESSION: No fracture or dislocation
--- NOTE | 2025-10-14 11:59 | XR_ITS ---
EXAMINATION: Lumbar spine 3 views TECHNIQUE: AP lateral: Lateral lower lumbar spine 3 views Date and time: October 14, 2025, 1211 hours INDICATIONS: Injury to the lower back today, lower back pain. FINDINGS: Satisfactory alignment lumbar vertebral bodies No lumbar fracture. Advanced degenerative disc disease L5-S1 IMPRESSION: No lumbar fracture
--- NOTE | 2025-10-14 11:59 | EDNOTE_ITS ---
Lower Extremity Injury RME/HPI General Chief Complaint: Extremity Injury, Lower Stated Complaint: Left knee pain since yesterday, lower back pain Time Seen by Provider: 10/14/25 12:04 Arrival date/time: 10/14/25 11:42 RME / HPI RME / HPI Narrative: See [facility] for Dr. Bah's HPI Documentation. Related Data Home Medications ?Medication ?Instructions ?Recorded ?Confirmed phenytoin sodium extended 100 mg 100 mg PO TID 9 04/11/24 capsule (Dilantin Extended) risperidone 2 mg tablet (Risperdal) 2 mg PO QDAY 04/1404/11/24 Previous Rx's ?Medication ?Instructions ?Recorded cyclobenzaprine 10 mg tablet 10 mg PO TID PRN muscle s pasm #10 09/14/24 tabs ibuprofen 600 mg tablet 600 mg PO Q8H PRN pain #20 t abs 09/14/24 azithromycin 250 mg tablet See Rx Instructions PO .COM PLEX #6 11/12/24 tabs hydrocodone 5 mg-acetaminophen 325 2 tab PO Q8H PRN pa in #20 tabs 10/14/25 mg tablet ibuprofen 800 mg tablet 800 mg PO Q8H PRN pain #30 t abs 10/14/25 Allergies Allergy/AdvReac Type Severity Reaction Status Date / Time codeine Allergy Severe VOMITING Verified 10/14/25 11:47 Review of Systems Review of Systems Systems Reviewed: All systems reviewed, normal except as documented Past Medical History Past Medical History NEUROLOGIC: Positive Seizures GASTROINTESTINAL: Positive Cirrhosis PSYCHO/SOCIAL: Positive Bipolar Disorder, Depression and Anxiety Social History SMOKING STATUS: Current every day smoker SUBSTANCE USE: does not use ED Exam Narrative Physical exam: See [facility] for Dr. Bah's HPI Documentation. Course Quality Measures none Orders Category Date Time Status XR knee LT 3V Stat Exams 10/14/25 11:59 Completed XR lumbar spine 2-3V Stat Exams 10/14/25 11:59 Completed Vital Signs Vital signs: Vital Signs Temperature 97.4 F 10/14/25 11:49 Pulse Rate 85 10/14/25 11:49 Respiratory Rate 19 10/14/25 11:49 Blood Pressure 145/88 H 10/14/25 11:49 Pulse Oximetry (%) 98 10/14/25 11:49 Oxygen Delivery Method Room Air 10/14/25 11:49 Extremity Injury, Lower MDM Narrative MDM Narrative:: This section includes all my notes and documentations, including HPI, PE, and ED course. Janes Bah MD HPI: 45-year-old male here with left knee pain since last night after picking up a heavy object and chronic low back pain. No other complaints. ROS: All negative except as documented in HPI. Physical Exam: General: Alert and oriented. No acute distress when remaining still. Eyes: Conjunctivae and lids clear. ENT: No nasal congestion. Neck: Supple. Lungs: No respiratory distress. Skin: Warm and dry. Neuro: Alert and oriented X 3. Musculoskeletal: Equivocal lumbar spine tenderness and left knee tenderness. All other major joints and bones are not tender with no limited ROM. I reviewed all diagnostic test results: My interpretation of the left knee x-rays is no fracture. My interpretation of the lumbar spine x-rays is no fracture. At this point, diagnoses include: Left knee sprain Chronic low back pain Recommended supportive care. Based on my best medical judgment, made decision no further evaluation or treatment indicated at this time. Patient understands and agrees to the dis charge instructions customized and printed, see below. Discharge Instructions from Dr. Bah: --After evaluation, you sprained your left knee.? This means small tears to your soft structures, such as [id number]-cartilage.? --To help the healing process, minimal weight bearing and elevate above waist level for 3 days as much as possible.?? --Apply ice for 20 minutes every 2-3 hours today and tomorrow.? --Take Ibuprofen 800 mg every 6-8 hours today and tomorrow to help decrease swelling then as needed.? [place] for severe pain. --Most importantly, see a private doctor on 10/16/2025 for recheck and further care. Ask for help until you are completely better. For your low back pain, ask for MRI imaging not available here in the ER. --Seek immediate medical care with any concerns.?? Janes Bah MD Patient data External records reviewed:: [facility] previous records Clinical information provided by:: patient Social determinants that could affect healthcare access:: alcohol use (smokes and drinks) Patient has the following chronic illnesses:: Seizures, cirrhosis, and Bipolar Disorder. How is presenting disease/condition affected by chronic disease/condition?: un effected by Evaluation data The following diagnostics were reviewed and interpreted by me:: radiology exam(s) Lab and/or radiology exams considered but not ordered:: none Interpretation Summary: I reviewed all diagnostic test results: My interpretation of the left knee x-rays is no fracture. My interpretation of the lumbar spine x-rays is no fracture. Medications / Prescriptions Medications or Prescriptions considered but not ordered:: none Medication administrations:: none Consultations Consultation(s) initiated? (list below): No Diagnosis Extremity Injury, Lower Differential Diagnosis: other (Knee sprain/strain/contusion/fracture) Most likely diagnosis given after review of the tests above:: Left knee sprain Chronic low back pain Admission Indicated Admission indicated?: not indicated Explain why admission is indicated or not indicated:: With no condition needing emergent intervention, there was no indication for admission. Admission Request Was there a request for admission?: No Disposition Plan Disposition Plan: Discharge Discharge Attestation Discharge Attestation: The patient and all family members were given an opportunity to ask questions and understood the discharge instructions. Discharge instructions specifically effects, indications for sooner follow up or return to the emergency department, and the expected course of current diagnosis. Patient condition: Stable Discharge Plan Plan Patient Disposition: HOME (Self Care) Prescriptions/Referrals Prescriptions/Med Rec: New ibuprofen 800 mg tablet 800 mg PO Q8H PRN (Reason: pain) Qty: 30 0RF hydrocodone-acetaminophen 5-325 mg tablet 2 tab PO Q8H MDD 6 PRN (Reason: pain) Qty: 20 0RF No Action phenytoin sodium extended [Dilantin Extended] 100 mg Capsule 100 mg PO TID risperidone [Risperdal] 2 mg Tablet 2 mg PO QDAY azithromycin 250 mg tablet See Rx Instructions .ROUTE .COMPLEX Qty: 6 0RF Rx Instructions: For 250 mg dose pack: take 500 mg today (day 1), then 250 mg for 4 days (days 2-5) cyclobenzaprine 10 mg tablet 10 mg PO TID PRN (Reason: muscle spasm) Qty: 10 0RF ibuprofen 600 mg tablet 600 mg PO Q8H PRN (Reason: pain) Qty: 20 0RF Referrals: Silvia Finch NP [Primary Care Provider] - In 1 week Problem List Clinical Impression: Left knee sprain, Chronic low back pain Patient/Caregiver Discharge Instructions Discharge Activity: activity as tolerated Education Materials: ED Back Pain (Acute or Chronic), ED Knee Sprain Additional Instructions: Discharge Instructions from Dr. Bah: --After evaluation, you sprained your left knee.? This means small tears to your soft structures, such as [id number]-cartilage.? --To help the healing process, minimal weight bearing and elevate above waist level for 3 days as much as possible.?? --Apply ice for 20 minutes every 2-3 hours today and tomorrow.? --Take Ibuprofen 800 mg every 6-8 hours today and tomorrow to help decrease swelling then as needed.? [place] for severe pain. --Most importantly, see a private doctor on 10/16/2025 for recheck and further care. Ask for help until you are completely better. For your low back pain, ask for MRI imaging not available here in the ER. --Seek immediate medical care with any concerns.?? Print Language: German Stand Alone Forms: Claudette Award Info., Patient Portal Info Letter
== END 2025-10-14 14:42 | disposition home or self-care (01) ==
PROVIDERS: Emergency Provider Emergency Medicine; PCP Nurse Practitioner Family
DX: S83.92XA Sprain of unspecified site of left knee, initial encounter (principal); M54.50 Low back pain, unspecified; G89.29 Other chronic pain; X50.0XXA Overexertion from strenuous movement or load, initial encounter
CPT/HCPCS: 72100; 73562; 99282